=== PATIENT | male | born 1950 | race Caucasian/White ===

== ENCOUNTER → 2017-03-16 | Outpatient (CLI) | payer MEDICARE | END | disposition home or self-care (01) | LOC: KCIC MRI 10:03 | DX: S46.211A Strain of muscle, fascia and tendon of other parts of biceps, right arm, initial encounter (principal); M19.011 Primary osteoarthritis, right shoulder; M25.711 Osteophyte, right shoulder; X58.XXXA Exposure to other specified factors, initial encounter; Y99.8 Other external cause status; Y92.89 Other specified places as the place of occurrence of the external cause; Y93.89 Activity, other specified | CPT/HCPCS: 73221 ==

== ENCOUNTER → 2018-01-30 | Outpatient (CLI) | payer MEDICARE ==
[~2018-01-30] MED LIST: METF500T16 PO
--- NOTE | 2018-01-30 16:43 | KCIC ---
3 view study of the left hand Clinical indications: Left hand pain for one week. Lifting injury. Pain involves third digit. FINDINGS: No acute fracture or dislocation or osteolytic process is seen. 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 IMPRESSION: No acute fracture. Electronically signed by: Anival Berry MD (01/30/2018 4:40 PM) [id number]
== END | disposition home or self-care (01) ==
LOC: KCIC 12:54
PROVIDERS: ATTEND Family Medicine
DX: S69.92XD Unspecified injury of left wrist, hand and finger(s), subsequent encounter (principal); X58.XXXD Exposure to other specified factors, subsequent encounter
CPT/HCPCS: 73130

== ENCOUNTER → 2020-01-28 | Outpatient (CLI) | payer MEDICARE ==
--- NOTE | 2020-01-28 13:50 | KCIC ---
LUMBAR SPINE WO CONTRAST Date: 01/28/2020 11:00 AM Indication: LUMBAR RADICULOPATHY / Spl. Instructions: Laminectomy in 1994 / History: New onset of left sided LBP into left hip and buttock x 4 weeks. Comparison: None. Technique: Multi-planar multi-weighted magnetic resonance imaging of the lumbar spine was performed without intravenous contrast using the standard lumbar spine protocol. FINDINGS: Trace retrolisthesis at L2-3. 5 mm anterolisthesis at L4-5. No acute fracture. Moderate multilevel degenerative disc desiccation and disc height loss. Fatty degenerative endplate changes at L2-3 and L5-S1. The conus terminates at a normal level. No abnormal signal is seen within the visualized distal spinal cord. No clumping of intrathecal nerve roots. No soft tissue abnormality in the visualized abdomen or pelvis. T12-L1: No disc bulge. No facet arthropathy. No significant spinal stenosis or neural foraminal narrowing. L1-L2: Disc bulge. Mild facet arthropathy. Prominent dorsal epidural fat. Moderate spinal stenosis. Mild bilateral neural foraminal narrowing. L2-L3: Disc bulge. Mild right and moderate left facet arthropathy. Mild spinal stenosis. Moderate right and mild left lateral recess narrowing. Moderate bilateral neural foraminal narrowing. L3-L4: Disc bulge. Severe facet arthropathy. Prominent dorsal epidural fat. Moderate to severe spinal stenosis. Moderate lateral recess narrowing. Mild to moderate bilateral neural foraminal narrowing. L4-L5: Disc bulge with annular tear and right lateral protrusion. Severe facet arthropathy. Moderate spinal stenosis. Severe lateral recess narrowing. Mild to moderate bilateral neural foraminal narrowing. L5-S1: Right hemilaminectomy. Disc bulge with far lateral protrusions. No spinal canal stenosis. Mild lateral recess narrowing. Moderate right and severe left neural foraminal narrowing. IMPRESSION: Moderate to severe lumbar spondylosis, detailed level by level above. Electronically signed by: Paxton Knapp MD (01/28/2020 1:47 PM) [id number]
== END ==
LOC: KCIC MRI 10:48
PROVIDERS: ATTEND Family Medicine
DX: M47.26 Other spondylosis with radiculopathy, lumbar region (principal); M48.07 Spinal stenosis, lumbosacral region; M51.16 Intervertebral disc disorders with radiculopathy, lumbar region; M12.88 Other specific arthropathies, not elsewhere classified, other specified site; M53.3 Sacrococcygeal disorders, not elsewhere classified
CPT/HCPCS: 72148

== ENCOUNTER → 2020-05-12 | Outpatient (CLI) | payer MEDICARE ==
--- NOTE | 2020-05-12 13:45 | KCIC ---
US DPLX CAROTID BILAT History: Reason: R CAROTID BRUIT / Spl. Instructions: / History: Multiple grayscale, color, and duplex spectral analysis waveform sonographic images were acquired of the carotid, subclavian, and vertebral arteries. Comparison: None Findings: RIGHT SIDE: Peak systolic flow velocity of the distal CCA is 87 cm/sec. Peak systolic flow velocity of the ICA is 73 cm/sec. The ICA/CCA ratio is 0.8. Peak end diastolic flow velocity of the ICA is 19 cm/sec. The peak systolic velocity of the ECA is 151 cm/sec. Mild atherosclerotic plaque formation is identified. LEFT SIDE: Peak systolic flow velocity of the distal CCA is 90 cm/sec. Peak systolic flow velocity of the ICA is 101 cm/sec. The ICA/CCA ratio is 1.1. Peak end diastolic flow velocity of the ICA is 25 cm/sec. Peak systolic flow velocity of the ECA is 159 cm/sec. Mild atherosclerotic plaque formation is identified. Vertebral arteries: Bilateral vertebral arteries demonstrate antegrade flow. Impression: Mild atherosclerosis of the cervical ICAs with velocities consistent with less than 50 percent stenos is. PQRS Compliance Statement - Stenosis calculations for carotid ultrasound studies are derived from priscila idated velocity criteria which are known to correlate with the NASCET methodology. Electronically signed by: Paxton Knapp MD (05/12/2020 1:42 PM) [id number]
== END ==
LOC: KCIC US 12:26
PROVIDERS: ATTEND Family Medicine
DX: I65.23 Occlusion and stenosis of bilateral carotid arteries (principal); M48.02 Spinal stenosis, cervical region
CPT/HCPCS: 93880

== ENCOUNTER → 2021-02-18 | Outpatient (CLI) | payer MEDICARE, OTHER ==
--- NOTE | 2021-02-18 14:16 | KCIC ---
CT CERVICAL SPINE WO History:Reason: Neck and Rt shoulder pain post fall 02/09/21. / Spl. Instructions: / History: Technique: Noncontrast CT imaging was performed of the cervical spine. Multiplanar images are reviewe d. Exposure: One or more of the following individualized dose reduction techniques were utilized for thi s examination: 1. Automated exposure control 2. Adjustment of the mA and/or kV according to patient size 3. Use of iterative reconstruction technique. Comparison: None Findings: Acute right C5 lamina and facet fracture. Additional acute C6 right superior facet fracture. There is no widening of the facet joint. Acute right C6 transverse process fracture (series 2 image 64). Poss ible acute C4 spinous process fracture (series 2 image 45) Straightening of the cervical spine. Normal vertebral body alignment. C2-C3: Posterior disc osteophyte complex. No canal narrowing. Uncovertebral and facet arthropathy. Se ruth left neuroforaminal narrowing. C3-C4: Posterior disc osteophyte complex. Minimal canal narrowing. Uncovertebral and facet arthropath y. Severe right and moderate left neuroforaminal narrowing. C4-C5: Posterior disc osteophyte complex. Mild canal narrowing. Uncovertebral and facet arthropathy. Severe right and moderate left neuroforaminal narrowing. C5-C6: Posterior disc osteophyte complex eccentric to the right. Mild canal narrowing. Uncovertebral and facet arthropathy. Moderate left and mild right neuroforaminal narrowing. C6-C7: Posterior discussed by complex. Minimal canal narrowing. Uncovertebral and facet arthropathy. Severe bilateral neuroforaminal narrowing. C7-T1: Disc bulge. No canal narrowing. No neuroforaminal narrowing. Facet arthropathy. Soft tissues unremarkable. Impression: 1. Acute C5 lamina and facet fracture with adjacent C6 superior facet fracture. 2. Acute right C6 transverse process fracture. 3. Possible acute C4 spinous process fracture 4. Moderate multilevel cervical spondylosis with canal narrowing. 5. Multilevel severe neuroforaminal narrowing. Electronically signed by: Corby Johnson DO (02/18/2021 2:14 PM) [id number]
== END ==
LOC: KCIC CT 12:19
PROVIDERS: ATTEND Family Medicine
DX: S12.400A Unspecified displaced fracture of fifth cervical vertebra, initial encounter for closed fracture (principal); S12.500A Unspecified displaced fracture of sixth cervical vertebra, initial encounter for closed fracture; M47.812 Spondylosis without myelopathy or radiculopathy, cervical region; M48.02 Spinal stenosis, cervical region; M25.78 Osteophyte, vertebrae; W19.XXXA Unspecified fall, initial encounter; Y93.89 Activity, other specified; Y92.89 Other specified places as the place of occurrence of the external cause; Y99.8 Other external cause status
CPT/HCPCS: 72125

== ENCOUNTER → 2021-03-11 | Outpatient (CLI) | payer MEDICARE, OTHER ==
--- NOTE | 2021-03-11 14:47 | KCIC ---
EXAM: Thoracic spine, 4 views. HISTORY: Radiculopathy. COMPARISON: None. FINDINGS: 4 views of the thoracic spine are obtained. There is mild multilevel endplate remodeling. T here are bridging and partially bridging anterior osteophytes at the mid thoracic levels. There are f ew endplate Schmorl's nodes. There is no fracture. IMPRESSION: Multilevel degenerative change. No acute osseous finding. Electronically signed by: Simley Villegas MD (03/11/2021 2:44 PM) [id number]
== END ==
LOC: KCIC 13:35
PROVIDERS: ATTEND Family Medicine
DX: M47.24 Other spondylosis with radiculopathy, thoracic region (principal); M51.44 Schmorl's nodes, thoracic region; M25.78 Osteophyte, vertebrae
CPT/HCPCS: 72072

== ENCOUNTER → 2021-04-02 | Outpatient (CLI) | payer MEDICARE, OTHER ==
--- NOTE | 2021-04-02 15:09 | KCIC ---
2 views of the cervical spine compared to cervical spine CT dated February 182020 for cervical fra ctures. FINDINGS: Mild straightening of the normal cervical lordosis with no alignment abnormality identified . No fractures at C5 lamina and C5-6 facets are not radiographically evident today. Degenerative narr owing at C5-6 and C6-7 with bulky anterior osteophytes. More mild narrowing at C4-5. IMPRESSION: 1. Straightening of the normal cervical lordosis with no acute osseous or alignment abnormality. 2. Multilevel degenerative spondylosis. 3. Previously described fractures at C5 and C6 on CT are radiographically occult. Electronically signed by: Shakeel Cooper MD (04/02/2021 3:06 PM) [id number]
== END ==
LOC: KCIC 10:46
PROVIDERS: ATTEND Neurological Surgery
DX: M47.812 Spondylosis without myelopathy or radiculopathy, cervical region (principal); M48.52XA Collapsed vertebra, not elsewhere classified, cervical region, initial encounter for fracture; M25.78 Osteophyte, vertebrae; M48.02 Spinal stenosis, cervical region
CPT/HCPCS: 72040